=== PATIENT | female | born 1985 | race Hispanic/Latino ===

== ENCOUNTER 2018-03-28 20:05 | Emergency (ER) | payer BC ==
[2018-03-28] MEDS ORDERED: METOCLOPRAMIDE 10 MG/2mL INJ ONE (23:15)
[2018-03-28] MEDS ORDERED: FENTANYL CITR 100 MCG/2 ML ONE (23:15)
[2018-03-28] MEDS ORDERED: ONDANSETRON 4 MG/2 ML VIAL ONE (23:16)
[2018-03-28] MEDS ORDERED: NA CHLORIDE 0.9% 1,000 ML ONE (23:16)
[2018-03-28 23:28] LABS: Protime INR 1.14
[2018-03-28 23:33] LABS: Urine Blood NEGATIVE (NEG); Urine Glucose NEGATIVE (NEG); Urine Protein NEGATIVE (NEG); Urine Specific Gravity >1.030 (1.005-1.030); Urine pH 6.5 (5.0-7.0)
[2018-03-28 23:34] LABS: Absolute Lymphocytes (CBC) 2.8 K/uL (0.7-4.9); Absolute Monocytes 0.7 K/uL (0.1-1.3); Absolute Neutrophil 5.4 K/uL (1.8-8.0); Basophils % 0.4 % (0-1.3); Eosinophils % 3.5 % (0-4.4); Hematocrit 37.1 % (36.0-45.0); Lymphocytes % 29.9 % (15.3-44.8); MCH 31.6 pg (27.0-35.0); MCV 87.5 fL (80-100); Monocytes % 7.8 % (3.3-12.3); RBC Red Blood Cell Count 4.24 M/uL (3.86-4.86)
[2018-03-28 23:41] LABS: ALT/SGPT 20 U/L (12-78); AST/SGOT 13 U/L (15-37); Albumin 3.5 g/dL (3.4-5.0); Alkaline Phosphatase 79 U/L (45-117); BUN Blood Urea Nitrogen 10 mg/dL (7-18); Bicarbonate 29 mmol/L (21-32); Bilirubin Direct 0.2 mg/dL (0-0.2); Bilirubin Total 0.6 mg/dL (0.2-1.0); Glucose Level 92 mg/dL (74-106); Magnesium 2.2 mg/dL (1.8-2.4); NT PRO-BNP 19 pg/mL (<125); Potassium 3.9 mmol/L (3.5-5.1); Sodium Level 140 mmol/L (136-145); Troponin (Emerg Dept Use Only) < 0.02 ng/mL (0.0-0.045)
--- NOTE | 2018-03-29 01:13 | EDPHYS ---
Physician Documentation [facility] Name: Kenzie Yuen Age: 32 yrs Sex: Female : 1985 Arrival Date: 03/28/2018 Time: 20:11 Bed 14 Private MD: ED Physician Benny Lopez HPI: 03/28 22:34 This 32 yrs old Female presents to ER via Wheelchair with complaints of olivier Headache. 22:34 The patient complains of pain to the forehead, left temporal area and right temporal olivier area. The patient describes the headache as a pressure. Onset: The symptoms/episode began/occurred 5 hour(s) ago, 3 hrs ago. Associated signs and symptoms: The patient has no apparent associated signs or symptoms. Severity of symptoms: At its worst the pain was moderate, in the emergency department the pain is unchanged. Headache History: The patient has had previous headaches and this one is similar to previous episodes, and this one is less severe than previous episodes. The symptoms are alleviated by nothing. the symptoms are aggravated by nothing. The patient has experienced similar episodes in the past. 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 - Social history:: Smoking status: Patient/guardian denies using tobacco. - Ebola Screening: : No symptoms or risks identified at this time. - Family history:: not pertinent. ROS: 22:34 Constitutional: Negative for fever, chills, and weight loss, Eyes: Negative for injury, olivier pain, redness, and discharge, ENT: Negative for injury, pain, and discharge, Neck: Negative for injury, pain, and swelling, Cardiovascular: Negative for chest pain, palpitations, and edema, Respiratory: Negative for shortness of breath, cough, wheezing, and pleuritic chest pain, Abdomen/GI: Negative for abdominal pain, nausea, vomiting, diarrhea, and constipation, Back: Negative for injury and pain, : Negative for injury, bleeding, discharge, and swelling, MS/Extremity: Negative for injury and deformity, Skin: Negative for injury, rash, and discoloration, Psych: Negative for depression, anxiety, suicide ideation, homicidal ideation, and hallucinations, Allergy/Immunology: Negative for hives, rash, and allergies, Endocrine: Negative for neck swelling, polydipsia, polyuria, polyphagia, and marked weight changes, Hematologic/Lymphatic: Negative for swollen nodes, abnormal bleeding, and unusual bruising. 22:34 Neuro: Positive for headache. 03/29 01:13 Neuro: Positive for headache similar in past to the onset, nature but more painful, olivier character was the same. Exam: 03/28 22:34 Constitutional: This is a well developed, well nourished patient who is awake, alert, olivier and in no acute distress. Head/Face: Normocephalic, atraumatic. Eyes: Pupils equal round and reactive to light, extra-ocular motions intact. Lids and lashes normal. Conjunctiva and sclera are non-icteric and not injected. Cornea within normal limits. Periorbital areas with no swelling, redness, or edema. ENT: Nares patent. No nasal discharge, no septal abnormalities noted. Tympanic membranes are normal and external auditory canals are clear. Oropharynx with no redness, swelling, or masses, exudates, or evidence of obstruction, uvula midline. Mucous membranes moist. Neck: Trachea midline, no thyromegaly or masses palpated, and no cervical lymphadenopathy. Supple, full range of motion without nuchal rigidity, or vertebral point tenderness. No Meningismus. Chest/axilla: Normal chest wall appearance and motion. Nontender with no deformity. No lesions are appreciated. Cardiovascular: Regular rate and rhythm with a normal S1 and S2. No gallops, murmurs, or rubs. Normal PMI, no JVD. No pulse deficits. Respiratory: Lungs have equal breath sounds bilaterally, clear to auscultation and percussion. No rales, rhonchi or wheezes noted. No increased work of breathing, no retractions or nasal flaring. Abdomen/GI: Soft, non-tender, with normal bowel sounds. No distension or tympany. No guarding or rebound. No evidence of tenderness throughout. Back: No spinal tenderness. No costovertebral tenderness. Full range of motion. Female : Normal external genitalia. Skin: Warm, dry with normal turgor. Normal color with no rashes, no lesions, and no evidence of cellulitis. MS/ Extremity: Pulses equal, no cyanosis. Neurovascular intact. Full, normal range of motion. Neuro: Awake and alert, GCS 15, oriented to person, place, time, and situation. Cranial nerves II-XII grossly intact. Motor strength 5/5 in all extremities. Sensory grossly intact. Cerebellar exam normal. Normal gait. Psych: Awake, alert, with orientation to person, place and time. Behavior, mood, and affect are within normal limits. Neck: ROM/movement: is normal, no acute changes, Meningeal signs: are not present, Kernig's sign is negative, Brudzinski's sign is negative. Vital Signs: 20:39 BP 146 / 93; Pulse 70; Resp 16; Temp 98(O); Pulse Ox 98% on R/A; Weight 54.43 kg; lp1 Height 5 ft. 8 in. (172.72 cm); Pain 8/10; 22:30 BP 126 / 80; Pulse 59; Resp 16; Pulse Ox 100% ; Pain 0/10; ao 23:30 BP 117 / 77; Pulse 62; Resp 16; Pulse Ox 97% on R/A; Pain 0/10; ao 03/29 00:45 BP 112 / 72; Pulse 58; Resp 18; Pulse Ox 99% on R/A; ao 01:45 BP 128 / 73; Pulse 65; Resp 16; Pulse Ox 100% on R/A; Pain 0/10; ao 03/28 20:39 Body Mass Index 18.25 (54.43 kg, 172.72 cm) lp1 MDM: 03/28 22:12 Patient medically screened. [facility] 22:37 Data reviewed: vital signs, nurses notes, lab test result(s), EKG, radiologic studies, [facility] CT scan, plain films. 03/28 22:34 Order name: Basic Metabolic Panel; Complete Time: 01:02 olivier 03/28 22:34 Order name: CBC with Diff; Complete Time: 01: [facility] 03/28 22:34 Order name: LFT's; Complete Time: 01:02 olivier 03/28 22:34 Order name: Magnesium; Complete Time: 01:02 [facility] 03/28 22:34 Order name: NT PRO-BNP; Complete Time: 01: [facility] 03/28 22:34 Order name: PT-INR; Complete Time: 01:02 olivier 03/28 22:34 Order name: Troponin (emerg Dept Use Only); Complete Time: 01:02 olivier 03/28 22:34 Order name: XRAY Chest (1 view) olivier 03/28 22:37 Order name: Head angio EDMS 03/28 22:41 Order name: Urine Dipstick--Ancillary (enter results); Complete Time: 01:02 ms 03/28 22:41 Order name: Urine --Ancillary (enter results); Complete Time: 01:02 ms 03/28 22:34 Order name: Cardiac monitoring; Complete Time: 01:57 olivier 03/28 22:34 Order name: IV Saline Lock; Complete Time: 22:49 olivier 03/28 22:34 Order name: Labs collected and sent; Complete Time: 22:49 olivier 03/28 22:34 Order name: O2 Per Protocol; Complete Time: 22:49 olivier 03/28 22:34 Order name: O2 Sat Monitoring; Complete Time: 22:49 olivier Administered Medications: 23:20 Drug: fentaNYL (PF) 25 mcg Route: IVP; Site: right antecubital; ao 03/29 01:56 Follow up: Response: No adverse reaction ao 03/28 23:20 Drug: Reglan 10 mg Route: IVP; Site: right antecubital; ao 03/29 01:56 Follow up: Response: No adverse reaction ao 03/28 23:21 Drug: Zofran 4 mg Route: IVP; Site: right antecubital; ao 03/29 01:54 Follow up: Response: No adverse reaction ao 03/28 23:22 Drug: NS 0.9% 500 ml Route: IV; Rate: bolus; Site: right antecubital; ao 03/29 00:30 Follow up: IV Status: Completed infusion; IV Intake: 500ml ao 00:30 Drug: NS 0.9% 1000 ml Route: IV; Rate: 125 ml/hr; Site: right antecubital; ao 01:54 Follow up: IV Status: Order to discontinue infusion ao 00:50 Drug: fentaNYL (PF) 25 mcg Route: IVP; Site: right antecubital; ao 01:55 Follow up: Response: No adverse reaction ao Disposition: 03/29/18 01:13 Discharged to Home. Impression: Headache. - Condition is Stable. - Discharge Instructions: General Headache Without Cause, General Headache Without Cause, [id number]. - Prescriptions for Fioricet with Codeine 50- 325-40-30 mg Oral capsule - take 1 capsule by ORAL route every 4 hours as needed not to exceed 6 capsules per 24hrs; 24 capsule. Zofran 4 mg Oral Tablet - take 1 tablet by ORAL route every 12 hours As needed; 20 tablet. - Medication Reconciliation Form, Thank You Letter, Antibiotic Education, Prescription Opioid Use form. - Follow up: Private Physician; When: 2 - 3 days; Reason: Recheck today's complaints, Continuance of care, Re-evaluation by your physician. Follow up: Aleks Byrant MD; When: 2 - 3 days; Reason: Recheck today's complaints, Re-evaluation by your physician. - Problem is new. - Symptoms have improved. Signatures: Dispatcher [employer] EDNH Benny Lopez MD MD cha Pena, Laura RN RN lp1 Daniel Pepe RN RN ao Corrections: (The following items were deleted from the chart) 03/28 23:35 22:35 Head Brain Wo Cont+CT.RAD.BRZ ordered. [facility] EDMS 03/29 01:57 03/28 22:34 EKG - Nurse/Tech ordered. olivier lopez 03/29 02:04 01:13 03/29/2018 01:13 Discharged to Home. Impression: Headache. Condition is Stable. ao Discharge Instructions: General Headache Without Cause, General Headache Without Cause, [id number]. Prescriptions for Fioricet with Codeine 57-415-06-30 mg Oral capsule - take 1 capsule by ORAL route every 4 hours as needed not to exceed 6 capsules per 24hrs; 24 capsule, Zofran 4 mg Oral Tablet - take 1 tablet by ORAL route every 12 hours As needed; 20 tablet. and Forms are Medication Reconciliation Form, Thank You Letter, Antibiotic Education, Prescription Opioid Use. Follow up: Private Physician; When: 2 - 3 days; Reason: Recheck today's complaints, Continuance of care, Re-evaluation by your physician. Follow up: Aleks Bryant; When: 2 - 3 days; Reason: Recheck today's complaints, Re-evaluation by your physician. Problem is new. Symptoms have improved. olivier
--- NOTE | 2018-03-29 01:13 | ER ---
Nurse's Notes [facility] Name: Kenzie Yuen Age: 32 yrs Sex: Female : 1985 Arrival Date: 03/28/2018 Time: 20:11 Bed 14 Private MD: Diagnosis: Headache Presentation: 03/28 20:37 Presenting complaint: Patient states: headache all of a sudden since 1700, sensitivity lp1 to light, sound, dizziness; States never had this before. Transition of care: patient was not received from another setting of care. Onset of symptoms was March 28, 2018 at 17:00. Risk Assessment: Do you want to hurt yourself or someone else? Patient reports no desire to harm self or others. Initial Sepsis Screen: Does the patient meet any 2 criteria? No. Patient's initial sepsis screen is negative. Does the patient have a suspected source of infection? No. Patient's initial sepsis screen is negative. Care prior to arrival: None. 20:37 Method Of Arrival: Wheelchair lp1 20:37 Acuity: NASIMA 3 lp1 Triage Assessment: 20:40 Headache History: Denies prior headaches. lp1 20:55 Pain: Pain began 3 hours ago. Also complains of no other associated symptoms. ao 20:56 General: Appears in no apparent distress. Behavior is calm, appropriate for age. 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 - Social history:: Smoking status: Patient/guardian denies using tobacco. - Ebola Screening: : No symptoms or risks identified at this time. - Family history:: not pertinent. Screenin:54 Abuse screen: Denies threats or abuse. Denies injuries from another. Nutritional ao screening: No deficits noted. Tuberculosis screening: No symptoms or risk factors identified. Fall Risk None identified. Assessment: 20:39 General: Appears uncomfortable. Pain: Complains of pain in head Pain currently is 8 out lp1 of 10 on a pain scale. Neuro: Level of Consciousness is awake, alert, obeys commands, Oriented to person, place, time, situation, Reports dizziness, headache occipital area, that is the "worst ever", photophobia. Derm: Skin is pink, warm \\T\\ dry. 21:00 General: Appears in no apparent distress. comfortable, Behavior is calm, cooperative, ao appropriate for age. Pain: Complains of pain in Headach Pain currently is 6 out of 10 on a pain scale. Neuro: Level of Consciousness is awake, alert, obeys commands, Oriented to person, place, time, situation, Moves all extremities. Full function Speech is normal. Cardiovascular: Heart tones S1 S2. Respiratory: Airway is patent Respiratory effort is even, unlabored, Respiratory pattern is regular, agonal. GI: Abdomen is non-distended. : No signs and/or symptoms were reported regarding the genitourinary system. EENT: No signs and/or symptoms were reported regarding the EENT system. Derm: Skin is pink, warm \\T\\ dry. normal, Skin temperature is warm. Musculoskeletal: Circulation, motion, and sensation intact. Range of motion: intact in all extremities. 22:04 Reassessment: Patient requested pain medications. Dr Lopez was notified and stated ao that would come and asses the patient. 23:30 Reassessment: Patient appears in no apparent distress at this time. Patient and/or ao family updated on plan of care and expected duration. Pain level reassessed. Patient states feeling better. Patient states symptoms have improved. 03/29 01:40 Reassessment: Patient appears in no apparent distress at this time. Patient and/or ao family updated on plan of care and expected duration. Pain level reassessed. Waiting on dispo orders. 01:45 Reassessment: Patient appears in no apparent distress at this time. Patient and/or ao family updated on plan of care and expected duration. Pain level reassessed. Patient to be discharge per Dr lopez. 01:59 Reassessment: DC instructions given to patient. Patient agree with the POC and to ao follow up with Neurologist. Vital Signs: 03/28 20:39 BP 146 / 93; Pulse 70; Resp 16; Temp 98(O); Pulse Ox 98% on R/A; Weight 54.43 kg; lp1 Height 5 ft. 8 in. (172.72 cm); Pain 8/10; 22:30 BP 126 / 80; Pulse 59; Resp 16; Pulse Ox 100% ; Pain 0/10; ao 23:30 BP 117 / 77; Pulse 62; Resp 16; Pulse Ox 97% on R/A; Pain 0/10; ao 10 00:45 BP 112 / 72; Pulse 58; Resp 18; Pulse Ox 99% on R/A; ao 01:45 BP 128 / 73; Pulse 65; Resp 16; Pulse Ox 100% on R/A; Pain 0/10; ao 03/28 20:39 Body Mass Index 18.25 (54.43 kg, 172.72 cm) lp1 ED Course: 03/28 20:11 Patient arrived in ED. ds1 20:38 Triage completed. lp1 20:38 Arm band placed on left wrist. lp1 20:53 Daniel Pepe, WALDEMAR is Primary Nurse. ao 20:55 Patient has correct armband on for positive identification. Pulse ox on. NIBP on. ao 22:12 Benny Lopez MD is Attending Physician. olivier 22:45 Initial lab(s) drawn, by me, sent to lab. Inserted saline lock: 20 gauge in right cc antecubital area, using aseptic technique. Blood collected. 22:49 XRAY Chest (1 view) In Process Unspecified. EDMS 23:20 Radiology exam delayed due to lab results not completed at this time. (HCG) jg6 (BUN/Creatinine). 23:36 Radiology exam delayed due to lab results not completed at this time. (HCG) kw1 (BUN/Creatinine). 23:[address] via wheelchair. kw1 03/29 00:06 Head angio In Process Unspecified. EDMS 00:06 CT completed. Patient tolerated procedure well. Patient moved back from CT. kw1 01:13 Aleks Bryant MD is Referral Physician. olivier 01:57 No provider procedures requiring assistance completed. IV discontinued, intact, ao bleeding controlled, No redness/swelling at site. Pressure dressing applied. Administered Medications: 03/28 23:20 Drug: fentaNYL (PF) 25 mcg Route: IVP; Site: right antecubital; ao 03/29 01:56 Follow up: Response: No adverse reaction ao 03/28 23:20 Drug: Reglan 10 mg Route: IVP; Site: right antecubital; ao 03/29 01:56 Follow up: Response: No adverse reaction ao 03/28 23:21 Drug: Zofran 4 mg Route: IVP; Site: right antecubital; ao 03/29 01:54 Follow up: Response: No adverse reaction ao 03/28 23:22 Drug: NS 0.9% 500 ml Route: IV; Rate: bolus; Site: right antecubital; ao 03/29 00:30 Follow up: IV Status: Completed infusion; IV Intake: 500ml ao 00:30 Drug: NS 0.9% 1000 ml Route: IV; Rate: 125 ml/hr; Site: right antecubital; ao 01:54 Follow up: IV Status: Order to discontinue infusion ao 00:50 Drug: fentaNYL (PF) 25 mcg Route: IVP; Site: right antecubital; ao 01:55 Follow up: Response: No adverse reaction ao Intake: 00:30 IV: 500ml; Total: 500ml. ao Outcome: 01:13 Discharge ordered by MD. aguayo 01:57 Discharged to home ambulatory. ao 01:57 Condition: stable 01:57 Discharge instructions given to patient, Instructed on discharge instructions, follow up and referral plans. Demonstrated understanding of instructions, follow-up care, medications, Prescriptions given X 2. 02:04 Patient left the ED. ao Signatures: Dispatcher [employer] EDBenny Garrett MD MD cha Sanford, Demi ds1 Rajani Mulligan Laura, RN RN lp1 Daniel Pepe RN RN Annamarie Apodaca1 Irma Macario [id number]
[2018-03-29 02:11] VITALS: TEMP 98
[2018-03-29 02:16] VITALS: BP 128/73; O2SAT 100
--- NOTE | 2018-03-29 07:18 | RAD REPORT ---
EXAM DESCRIPTION: RAD - Chest Single View - 03/28/2018 10:50 pm CLINICAL HISTORY: Cough, shortness of breath COMPARISON: None. TECHNIQUE: AP portable chest image was obtained 2247 hours . FINDINGS: Lungs are clear. Heart and vasculature are normal. No measurable pleural effusion and no p neumothorax. No acute bony abnormality seen. No acute aortic findings suspected. IMPRESSION: No acute cardiopulmonary process.
--- NOTE | 2018-03-29 08:21 | RAD REPORT ---
EXAM DESCRIPTION: CT - Head angio - 03/29/2018 6:26 am CLINICAL HISTORY: Severe headache A preliminary report was provided at the time of the study and reviewed prior to final report. TECHNIQUE: Axial 5 millimeter thick images of the head were obtained. During dynamic enhancement usi ng nonionic IV contrast, axial 1 millimeter thick images were obtained. Sagittal and coronal reformat jamey images were generated and reviewed. All CT scans are performed using dose optimization technique as appropriate and may include automated exposure control or mA/KV adjustment according to patient size. COMPARISON: None FINDINGS: Noncontrast imaging shows no hemorrhage, mass or edema. Ventricles are normal. No acute b rain parenchymal finding. Mastoid air cells and paranasal sinuses are clear. No aneurysm or vascular malformation identifiable. No vasculitis, vasospasm or other diffuse vascular process seen. No focal stenosis or branch occlusion identifiable. Major venous sinuses are patent. IMPRESSION: Negative CT angio head examination.
== END 2018-03-29 02:04 | disposition home or self-care (01) ==
LOC: ER 20:05
DX: R51 Headache (principal); Z88.6 Allergy status to analgesic agent
CPT/HCPCS: 36415; 70496; 71045; 80048; 80076; 81003; 81025; 83735; 83880; 84484; 85025; 85610; 96361; 96374; 96375; 99284; J2405; J2765; J3010; J7030; Q9967

== ENCOUNTER 2019-07-17 08:53 | Emergency (ER) | payer BC ==
[2019-07-17 09:33] LABS: Absolute Lymphocytes (CBC) 1.9 K/uL (0.7-4.9); Basophils % 0.4 % (0-1.3); Hematocrit 39.4 % (36.0-45.0); Lymphocytes % 29.2 % (15.3-44.8); MPV 8.4 fL (7.6-11.3); RBC Red Blood Cell Count 4.62 M/uL (3.86-4.86)
--- NOTE | 2019-07-17 09:46 | RAD REPORT ---
EXAM DESCRIPTION: Lupe Single View07/17/2019 9:34 am CLINICAL HISTORY: Chest pain COMPARISON: 2017 FINDINGS: The lungs appear clear of acute infiltrate. The heart is normal size IMPRESSION: No acute abnormalities displayed
[2019-07-17 09:53] LABS: ALT/SGPT 33 U/L (12-78); AST/SGOT 15 U/L (15-37); Albumin 3.6 g/dL (3.4-5.0); Alkaline Phosphatase 73 U/L (45-117); BUN Blood Urea Nitrogen 10 mg/dL (7-18); Bicarbonate 27 mmol/L (21-32); Bilirubin Direct 0.2 mg/dL (0-0.2); Bilirubin Total 0.7 mg/dL (0.2-1.0); Glucose Level 108 mg/dL (74-106); Magnesium 2.2 mg/dL (1.8-2.4); NT PRO-BNP 162 pg/mL (<125); Potassium 3.6 mmol/L (3.5-5.1); Protein, Total 6.9 g/dL (6.4-8.2); Sodium Level 140 mmol/L (136-145); Troponin (Emerg Dept Use Only) < 0.02 ng/mL (0.0-0.045)
[2019-07-17 10:55] LABS: Urine Blood TRACE (NEG); Urine Glucose NEGATIVE (NEG); Urine Protein NEGATIVE (NEG); Urine Specific Gravity 1.015 (1.005-1.030)
--- NOTE | 2019-07-17 12:25 | EKG ---
Test Date: 2019-07-17 Test Time: 09:07:39 Fruit Rancher: MONICA MEASUREMENT RESULTS: Intervals: Rate: 90 IA: 138 QRSD: 82 QT: 382 QTc: 467 Seymour: P: 53 IA: 138 QRS: 117 T: 53 INTERPRETIVE STATEMENTS: Normal sinus rhythm Left posterior fascicular block Abnormal ECG No previous ECG available for comparison Electronically Signed On 07-17-19 12:24:30 BLURB WRITER by Carlos Navarro
--- NOTE | 2019-07-17 12:31 | EDPHYS ---
Physician Documentation [facility] Name: Kenzie Yuen Age: 33 yrs Sex: Female : 1985 Arrival Date: 07/17/2019 Time: 08:56 Bed 15 Private MD: Rito Oneil H ED Physician Benny Lopez HPI: 07/17 09:13 This 33 yrs old Female presents to ER via Ambulatory with complaints of Chest jmm Pain. 09:13 The patient or guardian reports chest pain that is located primarily in the substernal [facility] area. The pain does not radiate. Associated signs and symptoms: Pertinent positives: shortness of breath. The chest pain is described as a pressure, sharp. Duration: The patient or guardian reports multiple episodes, that wax and wane, the episodes last approximately 10 minute(s). Modifying factors: The symptoms are alleviated by nothing. the symptoms are aggravated by emotionally stressful situations. Patient states chest pain began last night. Last for approx 10 minutes. Patient states her uncle recently and is also having increased stress at work. Pain does not radiate. 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 tw2 Historical: - Allergies: 09:05 Aspirin; tw2 09:05 Ibuprofen; tw2 - Home Meds: 09:05 None [Active]; tw2 - PMHx: 09:05 None; tw2 - PSHx: 09:05 gastric sleeve; Appendectomy; tw2 - Immunization history:: Adult Immunizations. - Coronavirus screen:: The patient has NOT traveled to [place], [place], or [place] in the past 14 days. - Social history:: Smoking status: . - Ebola Screening: : Patient denies travel to an Ebola-affected area in the 21 days before illness onset. ROS: 09:13 Constitutional: Negative for fever, chills, and weight loss. jmm 09:13 Respiratory: Negative for shortness of breath, cough, wheezing, and pleuritic chest pain, Abdomen/GI: Negative for abdominal pain, nausea, vomiting, diarrhea, and constipation. 09:13 Cardiovascular: Positive for chest pain. 09:13 All other systems are negative. Exam: 09:13 Head/Face: atraumatic. Eyes: EOMI, no conjunctival erythema appreciated ENT: Moist jmm Mucus Membranes Neck: Trachea midline, Supple Chest/axilla: Normal chest wall appearance and motion. 09:13 Abdomen/GI: Non distended, soft Back: Normal ROM Skin: General appearance color normal MS/ Extremity: Moves all extremities, no obvious deformities appreciated, no edema noted to the lower extremities Neuro: Awake and alert, normal gait Psych: Behavior is normal, Mood is normal, Patient is cooperative and pleasant 09:13 Constitutional: The patient appears alert, awake, anxious, uncomfortable. 09:13 Cardiovascular: Rate: normal, Rhythm: regular, Pulses: no pulse deficits are appreciated. 09:13 Respiratory: the patient does not display signs of respiratory distress, Respirations: normal, Breath sounds: are clear throughout. Vital Signs: 09:03 BP 144 / 86; Pulse 88; Resp 17; Pulse Ox 100% on R/A; Weight 54.43 kg (R); Height 5 ft. tw2 0 in. (152.40 cm); Pain 0/10; 09:24 Temp 98.1(O); tw2 10:32 BP 124 / 74; Pulse 71; Resp 16 S; Pulse Ox 100% on R/A; ca1 11:19 BP 152 / 81; Pulse 81; Resp 17 S; Pulse Ox 99% on R/A; ca1 12:27 BP 106 / 66; Pulse 62; Resp 15 S; Pulse Ox 100% on R/A; ca1 09:03 Body Mass Index 23.44 (54.43 kg, 152.40 cm) tw2 MDM: 09:02 Patient medically screened. [facility] 12:27 Data reviewed: vital signs, nurses notes. Counseling: I had a detailed discussion with remy the patient and/or guardian regarding: the historical points, exam findings, and any diagnostic results supporting the discharge/admit diagnosis, lab results, radiology results, the need for outpatient follow up, to return to the emergency department if symptoms worsen or persist or if there are any questions or concerns that arise at home. ED course: Pain resolved in the ED. Advised to follow up with cardiology for further evaluation. Patient is otherwise given strict return precautions. Patient understood and agrees with the plan of care. . 07/17 09:12 Order name: Basic Metabolic Panel; Complete Time: 09:56 [facility] 07/17 09:12 Order name: CBC with Diff; Complete Time: 09:40 [facility] 07/17 09:12 Order name: LFT's; Complete Time: 09:56 07/17 09:12 Order name: Magnesium; Complete Time: 09:56 07/17 09:12 Order name: NT PRO-BNP; Complete Time: 09:56 07/17 09:12 Order name: PT-INR; Complete Time: 10:05 07/17 09:12 Order name: Troponin (emerg Dept Use Only); Complete Time: 09:56 07/17 09:12 Order name: XRAY Chest (1 view); Complete Time: 09:47 07/17 09:12 Order name: EKG; Complete Time: 09:13 07/17 09:12 Order name: Cardiac monitoring; Complete Time: 09:17 07/17 09:12 Order name: D-Dimer; Complete Time: 10:05 07/17 10:33 Order name: Urine Dipstick--Ancillary (enter results); Complete Time: 11:00 07/17 10:33 Order name: Urine --Ancillary (enter results); Complete Time: 11:00 07/17 11:27 Order name: Troponin (emerg Dept Use Only); Complete Time: 12:06 07/17 09:12 Order name: EKG - Nurse/Tech; Complete Time: 09:17 07/17 09:12 Order name: IV Saline Lock; Complete Time: 09:57 07/17 09:12 Order name: Labs collected and sent; Complete Time: 09:57 07/17 09:12 Order name: O2 Per Protocol; Complete Time: 09:17 07/17 09:12 Order name: O2 Sat Monitoring; Complete Time: 09:17 07/17 09:12 Order name: Urine Dipstick-Ancillary (obtain specimen); Complete Time: 10:32 07/17 09:12 Order name: Urine Test (obtain specimen); Complete Time: 10:32 07/17 11:27 Order name: EKG - Nurse/Tech; Complete Time: 11:37 jmm Administered Medications: No medications were administered Disposition: 14:54 Co-signature as Attending Physician, Benny BERNARD I agree with the assessment and olivier plan of care. Disposition: 07/17/19 12:30 Discharged to Home. Impression: Chest pain, unspecified. - Condition is Stable. - Discharge Instructions: Nonspecific Chest Pain. - Medication Reconciliation Form, Thank You Letter, Antibiotic Education, Prescription Opioid Use, Work release form form. - Follow up: Rito Oneil DO; When: 2 - 3 days; Reason: Recheck today's complaints, Continuance of care, Re-evaluation by your physician. Signatures: Dispatcher [employer] EDBenny Garrett MD MD cha Mickail, Joel, PA PA Silvina Tate, RN RN tw2 Apryl David RN RN ca1 Corrections: (The following items were deleted from the chart) 12:43 12:30 07/17/2019 12:30 Discharged to Home. Impression: Chest pain, unspecified. ca1 Condition is Stable. Forms are Work release form, Medication Reconciliation Form, Thank You Letter, Antibiotic Education, Prescription Opioid Use. Follow up: Rito Oneil; When: 2 - 3 days; Reason: Recheck today's complaints, Continuance of care, Re-evaluation by your physician. remy
--- NOTE | 2019-07-17 12:31 | ER ---
Nurse's Notes [facility] Name: Kenzie Yuen Age: 33 yrs Sex: Female : 1985 Arrival Date: 07/17/2019 Time: 08:56 Bed 15 Private MD: Rito Oneil H Diagnosis: Chest pain, unspecified Presentation: 07/17 09:01 Presenting complaint: Patient states: since yesterday i feel like my heart is racing, i tw2 have a lot of stress, and i felt lightheaded at work, its a pressure not a pain. Transition of care: patient was not received from another setting of care. Onset of symptoms was July 17, 2019. Risk Assessment: Do you want to hurt yourself or someone else? Patient reports no desire to harm self or others. Initial Sepsis Screen: Does the patient meet any 2 criteria? No. Patient's initial sepsis screen is negative. Does the patient have a suspected source of infection? No. Patient's initial sepsis screen is negative. Care prior to arrival: None. 09:01 Method Of Arrival: Ambulatory tw2 09:01 Acuity: NASIMA 3 tw2 Triage Assessment: 09:03 General: Appears in no apparent distress. slender, well groomed, Behavior is anxious. tw2 Pain: Complains of pain in chest. Cardiovascular: Reports lightheadedness, "pressure not pain". 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 tw2 Historical: - Allergies: 09:05 Aspirin; tw2 09:05 Ibuprofen; tw2 - Home Meds: 09:05 None [Active]; tw2 - PMHx: 09:05 None; tw2 - PSHx: 09:05 gastric sleeve; Appendectomy; tw2 - Immunization history:: Adult Immunizations. - Coronavirus screen:: The patient has NOT traveled to [place], [place], or [place] in the past 14 days. - Social history:: Smoking status: . - Ebola Screening: : Patient denies travel to an Ebola-affected area in the 21 days before illness onset. Screenin:29 Abuse screen: Denies threats or abuse. Nutritional screening: No deficits noted. tw2 Tuberculosis screening: No symptoms or risk factors identified. Fall Risk None identified. Assessment: 09:26 General: Appears in no apparent distress. Behavior is cooperative, anxious. Pain: Pain tw2 does not radiate. Pain began 1 day ago. Neuro: Level of Consciousness is awake, alert, obeys commands, Oriented to person, place, time, situation. Cardiovascular: Reports chest pressure Heart tones S1 S2 Patient's skin is warm and dry. Respiratory: Airway is patent Respiratory effort is even, unlabored, Respiratory pattern is regular, symmetrical, Breath sounds are clear bilaterally. GI: No signs and/or symptoms were reported involving the gastrointestinal system. Abdomen is flat, Bowel sounds present X 4 quads. : No signs and/or symptoms were reported regarding the genitourinary system. EENT: No signs and/or symptoms were reported regarding the EENT system. Derm: No signs and/or symptoms reported regarding the dermatologic system. Musculoskeletal: Range of motion: intact in all extremities. 10:32 Reassessment: Patient appears in no apparent distress at this time. Patient and/or ca1 family updated on plan of care and expected duration. Pain level reassessed. Patient is alert, oriented x 3, equal unlabored respirations, skin warm/dry/pink. 11:19 Reassessment: Patient appears in no apparent distress at this time. Patient is alert, ca1 oriented x 3, equal unlabored respirations, skin warm/dry/pink. 12:27 Reassessment: Patient appears in no apparent distress at this time. Patient is alert, ca1 oriented x 3, equal unlabored respirations, skin warm/dry/pink. Vital Signs: 09:03 BP 144 / 86; Pulse 88; Resp 17; Pulse Ox 100% on R/A; Weight 54.43 kg (R); Height 5 ft. tw2 0 in. (152.40 cm); Pain 0/10; 09:24 Temp 98.1(O); tw2 10:32 BP 124 / 74; Pulse 71; Resp 16 S; Pulse Ox 100% on R/A; ca1 11:19 BP 152 / 81; Pulse 81; Resp 17 S; Pulse Ox 99% on R/A; ca1 12:27 BP 106 / 66; Pulse 62; Resp 15 S; Pulse Ox 100% on R/A; ca1 09:03 Body Mass Index 23.44 (54.43 kg, 152.40 cm) tw2 ED Course: 08:56 Patient arrived in ED. mr 08:56 Rito Oneil DO is Private Physician. mr 08:58 Henry Bueno PA is PHCP. [facility] 08:58 Benny Lopez MD is Attending Physician. [facility] 08:59 Bed in low position. Call light in reach. press hand on. Pulse ox on. NIBP on. tw2 09:01 Silvina Sharif RN is Primary Nurse. tw2 09:02 Triage completed. tw2 09:02 Arm band placed on. tw2 09:06 EKG completed in triage. Results shown to MD. tw2 09:24 Inserted saline lock: 20 gauge in right antecubital area, using aseptic technique. tw2 Blood collected. Patient maintains SpO2 saturation greater than 95% on room air. 09:34 XRAY Chest (1 view) In Process Unspecified. EDMS 09:50 Report given to WALDEMAR Pink. tw2 11:37 Troponin (emerg Dept Use Only) Sent. ca1 12:29 Rito Oneil DO is Referral Physician. [facility] 12:43 No provider procedures requiring assistance completed. IV discontinued, intact, ca1 bleeding controlled, No redness/swelling at site. Pressure dressing applied. Administered Medications: No medications were administered Outcome: 12:30 Discharge ordered by MD. [facility] 12:43 Discharged to home ambulatory, with family. ca1 12:43 Condition: stable 12:43 Discharge instructions given to patient, Instructed on discharge instructions, follow up and referral plans. Demonstrated understanding of instructions, follow-up care. 12:43 Patient left the ED. ca1 Signatures: Dispatcher [employer] EDMS Henry Bueno PA PA [facility] Nicol Solorio Silvina Sharif, RN RN tw2 Apryl David RN RN ca1
[2019-07-17 12:59] VITALS: TEMP 98.1
[2019-07-17 13:04] VITALS: BP 106/66; O2SAT 100
--- NOTE | 2019-07-17 15:20 | EKG ---
Test Date: 2019-07-17 Test Time: 11:33:27 Technical Support Consultant: RIGO MEASUREMENT RESULTS: Intervals: Rate: 63 NC: 156 QRSD: 80 QT: 426 QTc: 435 [place]: P: 72 NC: 156 QRS: 109 T: 58 INTERPRETIVE STATEMENTS: Normal sinus rhythm Rightward axis Low voltage QRS Borderline ECG Compared to ECG 07/17/2019 09:07:39 Low QRS voltage now present Electronically Signed On 07-17-19 15:19:02 CENTRAL PROCESSING TECHNICIAN by Carlos Navarro
== END 2019-07-17 12:43 | disposition home or self-care (01) ==
LOC: ER 08:53
DX: R07.9 Chest pain, unspecified (principal); Z88.6 Allergy status to analgesic agent
CPT/HCPCS: 36415; 71045; 80048; 80076; 81003; 81025; 83735; 83880; 84484; 85025; 85379; 85610; 93005; 99285

== ENCOUNTER 2019-12-13 06:16 | Day surgery (SDC) | payer BC ==
[2019-12-12 14:34] LABS: Absolute Lymphocytes (CBC) 2.2 K/uL (0.7-4.9); Basophils % 0.6 % (0-1.3); Lymphocytes % 28.5 % (15.3-44.8); RBC Red Blood Cell Count 4.68 M/uL (3.86-4.86)
[2019-12-12 15:00] LABS: ALT/SGPT 24 U/L (12-78); AST/SGOT 16 U/L (15-37); Alkaline Phosphatase 76 U/L (45-117); Amylase 46 U/L (25-115); BUN Blood Urea Nitrogen 8 mg/dL (7-18); Bicarbonate 28 mmol/L (21-32); Bilirubin Direct 0.2 mg/dL (0-0.2); Bilirubin Total 0.7 mg/dL (0.2-1.0); Glucose Level 89 mg/dL (74-106); Lipase 49 U/L (73-393); Potassium 4.1 mmol/L (3.5-5.1); Sodium Level 140 mmol/L (136-145)
[2019-12-13] MEDS ORDERED: Ringers Lactate 1,000 ML IV ONE ×2 (06:36→08:55)
[2019-12-13] MEDS ORDERED: propofoL 200 MG/20 ML VIAL IV ONE (07:32)
[2019-12-13] MEDS ORDERED: ROCURONIUM 50 MG/5 ML VIAL IV ONE (07:32)
[2019-12-13] MEDS ORDERED: FENTANYL CITR 100 MCG/2 ML ONE ×2 (07:32→09:24)
[2019-12-13] MEDS ORDERED: LIDOCAINE 1% MPF 5 ML VIAL ONE (07:33)
[2019-12-13] MEDS ORDERED: MIDAZOLAM HCL 2 MG/2 ML INJ ONE (07:33)
[2019-12-13] MEDS ORDERED: CEFOXITIN/SWI 1gm 1 GM/10 ML SYR ONE (08:52)
[2019-12-13] MEDS ORDERED: dexAMETHasone 10 MG/ML VIAL ONE (09:12)
[2019-12-13] MEDS ORDERED: ONDANSETRON 4 MG/2 ML VIAL ONE ×3 (09:16→10:31)
[2019-12-13] MEDS ORDERED: NEOSTIGMINE 1 MG/ML -5 ML ONE (09:29)
[2019-12-13] MEDS ORDERED: GLYCOPYRROLATE 0.2 MG/ML SYR ONE (09:29)
--- NOTE | 2019-12-13 09:48 | P.BOP ---
Preoperative diagnosis: acute cholecystitis, symptomatic cholelithiasis, h/o gastric sleeve Postoperative diagnosis: same Primary procedure: Laparoscopic cholecystectomy Meter Repairer Helper: LUCAS DOMINIQUE (FRIT COATER) Estimated blood loss: <10cc Specimen: gb Findings: as above, adhesions Anesthesia: General Complications: None Transferred to: Recovery Room Condition: Good
[2019-12-13] MEDS: HYDROMORPHONE HCL 1 MG/ML INJ ONE ×4 (09:53→10:30)
[2019-12-13] MEDS ORDERED: PROMETHAZINE INJ 25 MG/ML AMP ONE (09:58)
[2019-12-13] MEDS ORDERED: METOCLOPRAMIDE 10 MG/2mL INJ ONE (10:31)
[2019-12-13] MEDS ORDERED: SCOPOLAMINE HYDROBROMIDE PATCH TD ONE (10:31)
[2019-12-13 11:08] VITALS: TEMP 97.6
--- NOTE | 2019-12-13 11:27 | DS ---
Diagnoses: Symptomatic cholelithiasis, acute cholecystitis. Procedure: Laparoscopic cholecystectomy. Disposition: Home. Activity: As tolerated, no heavy lifting Plan: Follow up in my office in 1 week. Call for appointment [phone], keep the area dry for 48 jade rs then may shower. Keep Steri-Strips intact. Medications: Include Tylenol no. 3 q.4 hours, p.r.n. pain, Augmentin 875 p.o. q.12. NEIDA/GILBERT Voice ID: [id number] Report ID: [id number]
--- NOTE | 2019-12-13 11:27 | OP ---
Date of Procedure: 12/13/2019 Surgeon: Manjit Mahmood MD Plant Tender: JUAN ALBERTO Mccarthy Preoperative Diagnoses: Acute cholecystitis, symptomatic cholelithiasis, right upper quadrant abdomi nal pain, history of gastric sleeve, history of abdominoplasty. Postoperative Diagnoses: Acute cholecystitis, symptomatic cholelithiasis, right upper quadrant abdom inal pain, history of gastric sleeve, history of abdominoplasty. Procedure Performed: Laparoscopic cholecystectomy. Estimated Blood Loss: Less than 10 mL. Specimen: Gallbladder. Findings: Acute cholecystitis, symptomatic cholelithiasis. Patient also has multiple adhesions on t he right upper quadrant. Complications: None. Indication For Procedure: This is the case of a 34-year-old patient with on and off abdominal pain, getting worse in the last few days, nausea and vomiting. The benefits, alternatives, and risks of la paroscopic possible open cholecystectomy were fully explained, which include, but not limited to infe ction, bleeding, damage to adjacent structures, anesthesia complications, choledocholithiasis, bile l eak, pancreatitis, CO, and even . She also understands this may not relieve any symptoms. She might need more than one surgical intervention. She understood signed a consent. Procedure In Detail: Patient was brought to the operating room, placed in supine position. Anesthes ia was done without complication. Abdominal area was prepped and draped in sterile fashion. Marcain e 0.5% was injected for local anesthetic. Patient has a previous abdominoplasty, so we used the prev ious incision from the periumbilical region, taking care of the umbilical skin, and handle with care. An incision was carried down to fascia, which was opened under direct vision. Peritoneum was encou ntered, opened under direct vision. Vicryl #1 placed inside of the fascia. [place] trocar was carefu lly introduced. No bleeding was obtained. After that, I placed 3 more trocars in the right upper qu adrant under direct visualization. When we saw the gallbladder, patient has multiple adhesions to th e gallbladder and to the liver bed. I placed a trocar in the fundus of the gallbladder and carefully took the adhesions down with the help of Endo Tesfaye connected to Bovie cauterizer. After we cleare d that area, then we proceeded to place another grasper in the infundibulum, retracted the gallbladde r in the inferolateral fashion exposing the triangle of Calot and obtaining critical view. The cysti c duct and cystic artery were clearly isolated free circumferentially and a connection between those and the gallbladder were clearly identified. I proceeded to ligate those by using at least 3 clips p roximal, 1 clip distal, ligation in the middle; same was done with the cystic artery. No bile leak, no bleeding. The gallbladder was removed from the liver using Bovie cauterizer and removed from abdo jeff cavity using EndoCatch through umbilical incision. The area was inspected once again. No bile leak. No bleeding. At that moment, I proceeded to remove the trocars under direct vision, deflated the pneumoperitoneum, closed the fascia with #1 Vicryl, irrigated subcutaneous tissue, closed with 3 -0 chromic, and the skin in a subcuticular fashion with 3-0 chromic and Steri-Strips on top. Sponge count and instrument counts were correct. Patient tolerated the procedure well, patient was sent to the recovery in stable condition. NEIDA/GILBERT Voice ID: [id number] Report ID: [id number]
[2019-12-13] MEDS ORDERED: CODEINE 30MG/APAP 300MG TAB ONE (11:48)
[2019-12-13 11:56] VITALS: BP 106/69; O2SAT 96
== END 2019-12-13 12:17 | disposition home or self-care (01) ==
LOC: OR 06:16
PROVIDERS: ATTEND Surgery
PROC: 0FT44ZZ Resection of Gallbladder, Percutaneous Endoscopic Approach (ICD-10-PCS; principal; 2019-12-13 07:30)
DX: K80.12 Calculus of gallbladder with acute and chronic cholecystitis without obstruction (principal); Z98.84 Bariatric surgery status; K66.0 Peritoneal adhesions (postprocedural) (postinfection)
CPT/HCPCS: 85025; 80048; 36415; 82150; 84703; 80076; 88304; 83690; 47562; U0002; J2704; J2765; J2550; J2250; J3010 ×2; J1100; J1170 ×2; J2710; J7120 ×2; J2405 ×3